=== PATIENT | male | born 1985 | race Caucasian/White ===

== ENCOUNTER 2017-04-12 17:24 | Emergency (ER) | payer BC ==
[~2017-04-12] VITALS: Ht 177.8 cm; Wt 122.5 kg
[~2017-04-12 17:24] MED LIST: DAYPRO600 M1 PO; LISINOPRIL2.5 MG; MOTRIN800 MG PO; ZESTRIL10 MG PO; ZIAC 5 MG-6.25 M5 MG PO
[2017-04-12] MEDS ORDERED: Motrin,Rufen800 MG PO (17:40)
== END 2017-04-12 18:43 | disposition home or self-care (01) ==
LOC: ED 17:24
DX: S86.111A Strain of other muscle(s) and tendon(s) of posterior muscle group at lower leg level, right leg, initial encounter (principal); S80.11XA Contusion of right lower leg, initial encounter; Z79.899 Other long term (current) drug therapy; X58.XXXA Exposure to other specified factors, initial encounter; Y93.67 Activity, basketball; Y92.89 Other specified places as the place of occurrence of the external cause; Y99.9 Unspecified external cause status

== ENCOUNTER 2024-01-02 15:21 | Emergency (ER) | payer BC ==
[~2024-01-02] VITALS: Ht 177.8 cm; Wt 140.6 kg
[~2024-01-02 15:21] MED LIST changes: +Motrin,Rufen800 MG PO
[2024-01-02] MEDS ORDERED: MEDROL DOSEPAK4 MG PO (17:45)
[2024-01-02] MEDS ORDERED: NAPROSYN500 MG PO (17:45)
== END 2024-01-02 17:56 | disposition home or self-care (01) ==
LOC: ED 15:21
DX: M77.8 Other enthesopathies, not elsewhere classified (principal); M25.531 Pain in right wrist